=== PATIENT | male | born 1955 | race Caucasian/White ===

== ENCOUNTER → 2017-03-29 | Outpatient (CLI) | payer BC ==
--- NOTE | 2017-03-29 14:38 | Diagnostic Imaging Report ---
PROCEDURE: MRI right joint upper extremity without contrast. TECHNIQUE: Multiplanar, multisequence non contrast-enhanced MRI of the right upper extremity was accomplished. INDICATION: Right shoulder pain. FINDINGS: There is no os acromiale or Hill-Sachs deformity. The long head of biceps is in its groove. There is mild increased signal in the supraspinatus and infraspinatus tendons suggestive of tendinosis and bursal side partial tear. No retracted or full-thickness tear. There is mild cystic change seen in the humeral head along the site of the insertion of the rotator cuff. There is intact appearing subscapularis tendon. There is mild increased signal through the superior segment of the labrum which raises question of degeneration or nondisplaced tear. This could be confirmed on a study with intra-articular contrast if needed. The acromioclavicular joint demonstrates slight widening and evidence of degenerative changes with no significant inferior osteophytes. The muscle bulk and signal is within normal limits. IMPRESSION: 1. There is tendinosis and low-grade bursal side tear in the supraspinatus and infraspinatus tendons. 2. Mild degenerative changes in the acromioclavicular joint with slight widening of the joint which could relate to an old injury. 3. Mild increased signal in the upper segment of the labrum raising question of possible underlying degeneration or nondisplaced tear. This can be better evaluated with an MR arthrogram if needed. Dictated by: Dictated on workstation # [id number]
--- NOTE | 2017-03-29 17:44 | Diagnostic Imaging Report ---
PROCEDURE: MRI left upper extremity without contrast. TECHNIQUE: Multiplanar, multisequence non contrast-enhanced MRI of the left upper extremity was accomplished. INDICATION: Left shoulder pain. FINDINGS: There is a Hill-Sachs deformity flattening the posterolateral aspect of the right humeral head with an underlying bone marrow edema suggestive of an acute or subacute occurrence. This could relate to anterior dislocation or other injury. No evidence of contusion or injury to the anterior inferior glenoid which could also be seen with anterior dislocation. The acromioclavicular joint demonstrates moderate osteoarthritis with mild to moderate inferior osteophytes that have a minimal impression upon the myotendinous junction of the supraspinatus. The supraspinatus and infraspinatus tendons demonstrate mild tendinosis with suggestion of a low-grade bursal side partial tear. The long head biceps tendon is within its groove. The subscapularis tendon appears intact. The glenoid labrum demonstrates no obvious tear. The muscle bulk and signal around the shoulder is normal. IMPRESSION: 1. There is flattening of the posterolateral aspect of the humeral head with marrow contusion suggestive of acute to subacute mildly depressed cortical fracture causing Hill-Sachs deformity. Correlate with mechanism of injury which could include anterior dislocation. 2. Acromioclavicular osteoarthritis with inferior osteophytes that have minimal impression upon the myotendinous junction of the supraspinatus. 3. Mild tendinosis and low-grade partial tear of the supraspinatus and infraspinatus. No high-grade or retracted rotator cuff tear is seen. Dictated by: Dictated on workstation # [id number]
== END ==
LOC: RAD 11:14
PROVIDERS: ATTEND Orthopaedic Surgery
DX: S40.012A Contusion of left shoulder, initial encounter (principal); M75.112 Incomplete rotator cuff tear or rupture of left shoulder, not specified as traumatic; M75.101 Unspecified rotator cuff tear or rupture of right shoulder, not specified as traumatic; M19.012 Primary osteoarthritis, left shoulder; M19.011 Primary osteoarthritis, right shoulder
CPT/HCPCS: 73221